=== PATIENT | female | born 2005 | race Caucasian/White ===

== ENCOUNTER 2024-04-26 17:55 | Emergency (ER) | payer SELFPAY ==
[2024-04-26 17:58] VITALS: BP 132/93
--- NOTE | 2024-04-26 19:12 | ED.GENMED ---
History of Present Illness
General
Chief Complaint: Skin Surface Trauma
Source: patient
Exam Limitations: none
Time Seen by Provider: 04/26/24 18:34
Nursing documentation reviewed up to this point in time: agreed with
History of Present Illness
History of Present Illness:
18-year-old female presenting to the emergency department today with concerns of right-sided thumb laceration that occurred prior to arrival when she was opening a wine bottle at work. Claims that the knife was clean denies any additional injuries.
She went to the urgent care that sent her directly to the ER for further assessment. Last had shot was 8 years ago.
Review of Systems
Review of Systems
Allergies reviewed?: Yes
All Other Systems: ROS reviewed and negative except as documented in HPI and ROS
Phy Exam
Physical Exam
Physical Exam:
GENERAL: Alert , in no apparent distress
EYE: pupils equal and reactive
NECK: Supple, no significant adenopathy.
ENT: o/p clr, mmm.
CARDIAC: Regular rate and rhythm .
LUNGS: Clear breath sounds bilaterally, no acute respiratory distress, no wheezes/rales/rhonchi
ABDOMEN: Soft, without focal tenderness, no r/g, no cvat
NEUROLOGICAL: Alert and oriented, no focal neuro deficits
SKIN: Radial aspect just to the side of the nailbed warm and dry, skin intact.
MUSCULOSKELETAL: No edema, well perfused.
PSYCH: Normal and appropriate interaction.
Laceration to the right thumb on the
Course
Orders/Labs/Results
Orders:
Orders
04/26/24 18:54
Tetanus/Diphth/Acelpertussis [Adacel] 0.5 ml IM .ONCE ONE
CR Hand - Right Min 3 Views Urgent
Comment:
Reason For Exam: thumb laceration
Vital Signs
Initial and Last Documented VS:
Initial Vital Signs
Temp Pulse Resp BP Pulse Ox
98.4 F 70 20 132/93 98
04/26/24 17:58 04/26/24 17:58 04/26/24 17:58 04/26/24 17:58 04/26/24 17:58
Last Documented Vital Signs
Temp Pulse Resp BP Pulse Ox
98.4 F 70 20 132/93 98
04/26/24 17:58 04/26/24 17:58 04/26/24 17:58 04/26/24 17:58 04/26/24 17:58
Procedures
Laceration Closure
Right Distal First Finger:
Status of Wound: clean
Size of Wound in cm: 2.5
Description of Wound Edges: sharp
Preparation: cleaned with saline
Anesthesia: Marcaine
Revision/Debridement: routine- no revision and irrigate-direct pressure
Wound exploration: explored to base- no FB and no tendon involvement
Type of Closure: single layer closure
Skin Closure Material: 4-0 chromic gut
Number of sutures: 4
MDM/Problems Addressed
MDM/Problems Addressed:
18-year-old female presenting to the emergency department today with concerns of a laceration occurring to the right thumb when she was opening up a wine bottle with a knife. Denies additional injuries last shot was 8 years ago was given an updated
1 today. X-ray without bony involvement. Laceration closed with 4 observable stitches. Patient tolerated well stable for discharge return precautions given.
*Critical Care Note
Total Time (30-74mins, 75-104mins- exclusive of procedures): Not Applicable
ED Attending Note
-
Portions of this chart may have been created with voice recognition software.� Occasional wrong word or��sound alike� substitutions may have occurred due to the inherent limitations of voice recognition software.
Discharge Plan
Departure
Patient Disposition: Home (Routine Discharge)
Date of Disposition: 04/26/24
Time of Disposition: 20:50
Patient with high blood pressure during this ER visit?: No
Condition: Good
Covid-19: Not Applicable
Discharge Problem:
Finger laceration
Instructions: Laceration Repair With Stitches (DC)
Referrals:
NONE,* [Family Provider] -
Activity Restrictions/Additional Instructions:
You came to the emergency department today with concerns of finger laceration. Please keep the area clean covered. Stitches should start to be dissolved after about 2 weeks you can gently remove them at that point. Return to the emergency
department immediately for any signs of infection or any other new or concerning features.
Interventions
Interventions:
*Risk Screen - Suicide Last Done: 04/26/24 19:28
*General Assessment Last Done: 04/26/24 19:28
*Neglect/Abuse Screening Last Done: 04/26/24 19:28
ED- Fall Risk Assessment Last Done: 04/26/24 19:28
ED-Skin Assessment Last Done: 04/26/24 19:28
Discharge Date and Time
Print Language: TAJIK
[2024-04-26] MEDS: ADACEL 0.5 ML IM (19:20)
== END 2024-04-26 21:05 | disposition home or self-care (01) ==
LOC: EMR 17:55
PROVIDERS: EMERGENCY PHYSICIAN Emergency Medicine
DX: S61.011A Laceration without foreign body of right thumb without damage to nail, initial encounter (principal); W26.0XXA Contact with knife, initial encounter; Y99.0 Civilian activity done for income or pay; Z23 Encounter for immunization
CPT/HCPCS: 99283; 12001; 90471; 73130; 90715

== ENCOUNTER 2025-09-20 22:53 | Emergency (ER) | payer OTHER, SELFPAY ==
[2025-09-20 23:07] VITALS: BP 123/83
[2025-09-21 02:09] VITALS: BMI 29.5
[2025-09-21 02:16] VITALS: BP 124/86
--- NOTE | 2025-09-21 02:45 | ED.SKININJ ---
HPI-Injury
General
Chief Complaint: Skin Surface Trauma
Source: patient
Exam Limitations: none
Time Seen by Provider: 09/21/25 02:33
Nursing documentation reviewed up to this point in time: agreed with
History of Present Illness-Injury
Is this injury a work related problem?: No
Is pt an associate of [facility], [place]?: No
Initial Injury comments:
19 right great toe laceration on glass it fell through a sock does not believe that there is any foreign body there tetanus is up-to-date
Review of Systems
Review of Systems
All Other Systems: Not applicable
Phy Exam
Physical Exam
Physical Exam:
Physical Exam
General: no apparent distress, not acutely ill
Neck: No jaundice
Lungs: no acute respiratory distress.
Neuro: alert and oriented. no focal neurological deficits
Skin: no rash
Psychiatric: well kept. interactive and cooperative
Extremities: 2 cm laceration on the extensor surface of the right great toe extensor mechanism appears intact
Course
Orders/Labs/Results
Orders:
Orders
09/20/25 23:10
Foot, Right 3 View [CR Foot - Right Min 3 Views] Urgent
Comment:
Reason For Exam: stepped on glass, r/o foreign body
Vital Signs
Initial and Last Documented VS:
Initial Vital Signs
Temp Pulse Resp BP Pulse Ox
98.5 F 72 14 123/83 100
09/20/25 23:07 09/20/25 23:07 09/20/25 23:07 09/20/25 23:07 09/20/25 23:07
Last Documented Vital Signs
Temp Pulse Resp BP Pulse Ox
98.5 F 59 18 124/86 100
09/20/25 23:07 09/21/25 02:16 09/21/25 02:16 09/21/25 02:16 09/21/25 02:16
Procedures
Laceration Closure
Right Toe:
Status of Wound: clean
Size of Wound in cm: 2
Description of Wound Edges: sharp
Preparation: cleaned with saline
Anesthesia: 1% Lidocaine with epi
Revision/Debridement: routine- no revision
Type of Closure: single layer closure
Skin Closure Material: 4-0 vicryl
Number of sutures: 2
Additional information:
Vicryl Rapide used
*Pulse Oximetry
SaO2: 100
Oxygen Mode of Delivery: Room air
Patient hypoxic: no
*Critical Care Note
Total Time (30-74mins, 75-104mins- exclusive of procedures): Not Applicable
Update Note
Update Note:
Update, wound clean closed
ED Attending Note
-
Portions of this chart may have been created with voice recognition software.� Occasional wrong word or��sound alike� substitutions may have occurred due to the inherent limitations of voice recognition software.
Discharge Plan
Departure
Patient Disposition: Home (Routine Discharge)
Date of Disposition: 09/21/25
Time of Disposition: 02:44
Patient with high blood pressure during this ER visit?: No
Condition: Good
Discharge Problem:
Laceration of toe
Instructions: Laceration Repair With [place] (DC)
Prescriptions:
No Action
No Current Medications
0
Referrals:
Kelby Arora DPM [[facility], Podiatry] - Follow up in 10 days
Activity Restrictions/Additional Instructions:
Stitches should come out on their own in 7 to 10 days
Interventions
Interventions:
*General Assessment Last Done: 09/21/25 02:09
*Neglect/Abuse Screening Last Done: 09/21/25 02:09
*ED COVID-19 Vaccine History Last Done: 09/21/25 02:09
*ED Influenza Vaccine History Last Done: 09/21/25 02:09
[facility] Fall Risk Assessment Tool Last Done: 09/21/25 02:09
*Risk Screen - Suicide (C-SSRS) Last Done: 09/21/25 02:09
ED-Skin Assessment Last Done: 09/21/25 02:19
Discharge Date and Time
Print Language: AFGHAN
== END 2025-09-21 02:57 | disposition home or self-care (01) ==
LOC: EMR 22:53
PROVIDERS: EMERGENCY PHYSICIAN Emergency Medicine; FAMILY PHYSICIAN Nurse Practitioner Family
DX: S91.111A Laceration without foreign body of right great toe without damage to nail, initial encounter (principal); W25.XXXA Contact with sharp glass, initial encounter
CPT/HCPCS: 99283; 12001; 73630